=== PATIENT | female | born 1965 | race Caucasian/White ===

== ENCOUNTER 2020-10-14 10:02 | Emergency (ER) | payer BC ==
[~2020-10-14] VITALS: Ht 152.4 cm; Wt 137.0 kg
[2020-10-14] MEDS ORDERED: ketorolac tromethamine 15mg/ml inj. IM ONE (11:10)
[2020-10-14 11:26] LABS: URINE HCG NEGATIVE (NEG)
[2020-10-14 11:28] LABS: CLARITY,URINE SLIGHTLY CLOUDY (Clear); COLOR,URINE YELLOW (Yellow); GLUCOSE, URINE NEGATIVE (Neg); KETONES,URINE NEGATIVE (Neg); LEUKOCYTE ESTERASE ,URINE TRACE (Neg); NITRITES, URINE NEGATIVE (Neg); OCCULT BLOOD,URINE LARGE (Neg); PROTEIN,URINE TRACE mg/dl (Neg); UROBILINOGEN,URINE 0.2 E.U/dL (0.2-1.0)
[2020-10-14 11:59] LABS: UA COLLECTION TYPE CLN CATCH MIDSTREAM
[2020-10-14 12:00] LABS: BACTERIA,URINE FEW /HPF (Neg); MUCUS STRANDS FEW /LPF (Neg); RBC,URINE 0-2 /HPF (0-2); SQUAMOUS EPITHELIAL CELL,UR MANY /LPF (FEW); WBC,URINE 0-4 /HPF (0-4)
[2020-10-14 12:13] VITALS: BP 143/102
== END 2020-10-14 12:55 | disposition home or self-care (01) ==
LOC: ER 10:04
DX: M25.521 Pain in right elbow (principal); R10.9 Unspecified abdominal pain; M25.511 Pain in right shoulder; R31.9 Hematuria, unspecified; Z85.3 Personal history of malignant neoplasm of breast
CPT/HCPCS: 73030; 73080; 81001; 81025; 96372; 99284; J1885